=== PATIENT | female | born 1985 | race American Indian/Alaskan Native ===

== ENCOUNTER 2016-10-15 11:19 | Emergency (ER) | payer OTHER ==
[2016-10-15 12:45] LABS: Bacteria,Urine 2+ /HPF (Negative); Bilirubin,Urine NEG (Negative); Blood,Urine LG (Negative); Ketones,Urine NEG (Negative); Leukocyte Esterase,Urine MOD (Negative); Mucus,Urine 1+ /HPF; Nitrite,Urine POS (Negative)
[2016-10-15 13:06] LABS: RBC,Urine > 182.0 /HPF (0.0-6.0); WBC,Urine > 182.0 /HPF (0.0-6.0)
[2016-10-15] MEDS ORDERED: TYLENOL ONE (18:28)
[2016-10-15] MEDS ORDERED: ROCEPHIN/NS 1 GM/50 ML 1 GM/50 ML BAG IV ONE ×2 (18:39→18:40)
[2016-10-15] MEDS ORDERED: NACL 0.9% 1000 ML 1,000 ML ONE (18:39)
[2016-10-15] MEDS ORDERED: NACL 0.9% 1000 ML 1,000 ML IV ONE (18:40)
[2016-10-15] MEDS ORDERED: TYLENOL PO ONE (18:40)
--- NOTE | 2016-10-15 19:04 | Emergency Department Report ---
ED Female HPI - General Chief complaint: Back Pain/Injury Stated complaint: SEVERE PAIN Source: patient Mode of arrival: Ambulatory Limitations: No Limitations - History of Present Illness Initial comments: 31-year-old female past medical history none presents with complaint of 4 days of dysuria with mild lower back pain. Patient states that her urine is darker in color and smells abnormal. Patient states that she has been having body aches. Is awake alert and oriented 3 denies any nausea or vomiting. Denies any vaginal discharge. Complaint of increased urinary frequency. States that she has had UTIs in the past. MD Complaint: dysuria Onset/Timin -: days(s) Location: other Radiation: L flank, R flank Severity: mild Severity scale (0 -10): 5 Quality: aching Consistency: intermittent Associated Symptoms: fever/chills, dysuria - Related Data Sexually active: Yes Previous Rx's Medication Instructions Recorded Last Taken Type Cetirizine HCl [ZyrTEC] 10 mg PO DAILY #30 capsule 04/09/16 Unknown Rx Tinidazole [Tindamax] 2,000 mg PO QDAY #2 tab 04/09/16 Unknown Rx Acetaminophen [Acetaminophen TAB] 500 mg PO Q6HR PRN #25 tablet 10/15/16 Unknown Rx Levofloxacin [Levaquin] 750 mg PO QDAY #5 tablet 10/15/16 Unknown Rx Allergies Allergy/AdvReac Type Severity Reaction Status Date / Time No Known Allergies Allergy Unverified 08/22/13 18:08 ED Review of Systems ROS: Stated complaint: SEVERE PAIN Other details as noted in HPI Constitutional: fever, malaise. denies: chills Eyes: denies: eye pain, eye discharge, vision change ENT: denies: ear pain, throat pain Respiratory: denies: cough, shortness of breath, wheezing Cardiovascular: denies: chest pain, palpitations Endocrine: no symptoms reported Gastrointestinal: denies: abdominal pain, diarrhea Genitourinary: urgency, dysuria. denies: discharge Musculoskeletal: denies: back pain, joint swelling, arthralgia Skin: denies: rash, lesions Neurological: denies: headache, weakness, paresthesias Psychiatric: denies: anxiety, depression Hematological/Lymphatic: denies: easy bleeding, easy bruising ED Past Medical Hx - Past Medical History Previous Medical History?: No Additional medical history: anemia - Surgical History Additional Surgical History: x 2, tubal ligation - Social History Smoking Status: Current Every Day Smoker - Medications Home Medications: Home Medications Medication Instructions Recorded Confirmed Last Taken Type Cetirizine HCl [ZyrTEC] 10 mg PO DAILY #30 capsule 04/09/16 Unknown Rx Tinidazole [Tindamax] 2,000 mg PO QDAY #2 tab 04/09/16 Unknown Rx Acetaminophen [Acetaminophen TAB] 500 mg PO Q6HR PRN #25 tablet 10/15/16 Unknown Rx Levofloxacin [Levaquin] 750 mg PO QDAY #5 tablet 10/15/16 Unknown Rx ED Physical Exam - General Limitations: No Limitations General appearance: alert, in no apparent distress - Head Head exam: Present: atraumatic, normocephalic - Eye Eye exam: Present: normal appearance, PERRL, EOMI - ENT ENT exam: Present: mucous membranes moist - Neck Neck exam: Present: normal inspection - Respiratory Respiratory exam: Present: normal lung sounds bilaterally. Absent: respiratory distress - Cardiovascular Cardiovascular Exam: Present: regular rate, normal rhythm. Absent: systolic murmur, diastolic murmur, rubs, gallop - GI/Abdominal GI/Abdominal exam: Present: soft, tenderness (mild suprapubic tenderness), normal bowel sounds - Extremities Exam Extremities exam: Present: normal inspection, full ROM - Back Exam Back exam: Present: normal inspection, full ROM, CVA tenderness (L) (left-sided flank pain on palpation) - Neurological Exam Neurological exam: Present: alert, oriented X3, CN II-XII intact, normal gait - Psychiatric Psychiatric exam: Present: normal affect, normal mood - Skin Skin exam: Present: warm, dry, intact, normal color. Absent: rash ED Course Vital Signs 10/15/16 10/15/16 10/15/16 11:33 18:47 18:49 Temperature 100.1 F H 102.9 F H Pulse Rate 101 H 112 H Respiratory 16 19 18 Rate Blood Pressure 129/83 Blood Pressure 138/81 [Left] O2 Sat by Pulse 100 100 99 Oximetry 10/15/16 10/15/16 10/15/16 19:29 20:29 21:39 Temperature 99.5 F Pulse Rate 109 H 84 Respiratory 16 16 Rate Blood Pressure Blood Pressure 116/68 112/67 115/71 [Left] O2 Sat by Pulse 100 100 Oximetry 10/15/16 22:09 Temperature Pulse Rate 86 Respiratory 17 Rate Blood Pressure Blood Pressure 120/76 [Left] O2 Sat by Pulse 99 Oximetry ED Medical Decision Making - Lab Data Result diagrams: 10/15/16 19:11 10/15/16 19:11 - Medical Decision Making A/P: Pyelonephritis 1- case discussed with Dr. Prasad 2- patient given 2 L of IV fluid and 1 g of ceftriaxone 3- lactic acid decreased from 2.0 to 0.[address] scan suggestive of bilateral pyelonephritis 4- vital signs stable her discharge, cr 0.7 5- levofloxacin 750 mg 5 day course for pyelonephritis as per [employer] dosing. Tylenol 500 mg when necessary 6-patient tolerating by mouth, I advised her to return to the ED if she experiences any persistent nausea or vomiting increase in fever and chills worsened flank pain or inability to void. Patient states she understood my instructions Critical care attestation.: If time is entered above; I have spent that time in minutes in the direct care of this critically ill patient, excluding procedure time. ED Disposition Clinical Impression: Pyelonephritis Disposition: DISCHARGED TO HOME OR SELFCARE Is pt being admited?: No Does the pt Need Aspirin: No Condition: Stable Instructions: Acute Pyelonephritis (ED), Urinary Tract Infection in Women (ED) Prescriptions: Acetaminophen [Acetaminophen TAB] 500 mg PO Q6HR PRN #25 tablet PRN Reason: Fever Levofloxacin [Levaquin] 750 mg PO QDAY #5 tablet Referrals: TRACI AGGARWAL MD [Staff Physician] - 3-5 Days Forms: Work/School Release Form(ED) Time of Disposition: 22:12
[2016-10-15 19:41] LABS: Basophils % (Auto) 0.3 % (0.0-1.8); Hematocrit 33.9 % (30.3-42.9); Hemoglobin 10.3 gm/dl (10.1-14.3); Mean Corpuscular HGB Conc 30 % (30-34); Platelet Count 248 K/mm3 (140-440); Red Blood Count 5.11 M/mm3 (3.65-5.03); Red Cell Distribution Width 18.7 % (13.2-15.2); White Blood Count 12.1 K/mm3 (4.5-11.0)
[2016-10-15 19:46] LABS: Mean Corpuscular Hemoglobin 20 pg (28-32); Mean Corpuscular Volume 66 fl (79-97)
[2016-10-15 19:51] LABS: Anion Gap 17 mmol/L; Blood Urea Nitrogen 7 mg/dL (7-17); Calcium 8.3 mg/dL (8.4-10.2); Carbon Dioxide 24 mmol/L (22-30); Chloride 96.1 mmol/L (98-107); Creatine Kinase 70 units/L (30-135); Glucose 145 mg/dL (65-100); Potassium 3.5 mmol/L (3.6-5.0); Sodium 134 mmol/L (137-145)
[2016-10-15] MEDS ORDERED: LACTATED RINGERS 1,000 ML IV ONE (20:10)
[2016-10-15] MEDS ORDERED: MORPHINE IV ONE ×2 (20:25→20:30)
--- NOTE | 2016-10-15 20:27 | Cat Scan Report ---
FINAL REPORT EXAM: CT ABDOMEN PELVIS W CON HISTORY: ? left side pyelo, = flank pain and COMPARISON: None available. TECHNIQUE: Contiguous axial images were obtained. Additional sagittal and coronal reformatted images were obtained. Administration of IV contrast given per institution protocol. Images submitted for interpretation. 100 cc Omnipaque 300. FINDINGS: Mild wall thickening and hyperemia of the bilateral ureters. Minimal dilatation renal pelves and ureters. Urinary bladder is unremarkable. No obstructive lesion identified along the course of the ureters. Subtle patchy enhancement of the right kidney. Findings are concerning for bilateral pyelonephritis and ureteritis more pronounced on the right. Lung bases are clear. Liver, spleen, pancreas and adrenal glands are grossly unremarkable. No calcified gallstones or biliary dilatation. Aorta and IVC are normal in caliber. Urinary bladder is grossly unremarkable. Prior coil embolization of fallopian tubes. Otherwise, uterus and ovaries are grossly unremarkable. Trace fluid in the pelvis may be physiologic or reactive. Large and small bowel loops are normal in caliber. Appendix is not visualized. However, there is no pericecal stranding or fluid to suggest acute inflammation. bony pelvis and lumbar spine are grossly intact. IMPRESSION: Findings concerning for bilateral pyelonephritis and ureteritis more pronounced on the right. No other gross acute findings.
[2016-10-15 22:09] VITALS: BP 120/76
[2016-10-15] MEDS ORDERED: LEVAQUIN PO ONE (22:16)
== END 2016-10-15 22:38 | disposition home or self-care (01) ==
LOC: ED 11:19
DX: N12 Tubulo-interstitial nephritis, not specified as acute or chronic (principal); D64.9 Anemia, unspecified; F17.200 Nicotine dependence, unspecified, uncomplicated
CPT/HCPCS: 36415; 74177; 80048; 81001; 81025; 82140; 82550; 85025; 87040; 96361; 96365; 96375; 99284; J0696; J2270; J7030; J7120; Q9967

== ENCOUNTER 2017-08-03 17:55 | Emergency (ER) | payer OTHER ==
[2017-08-03 18:05] VITALS: BP 118/90
--- NOTE | 2017-08-03 21:39 | XRay Report ---
FINAL REPORT PROCEDURE: XR ANKLE 3+V RT TECHNIQUE: Right ankle radiographs, AP, lateral, and oblique views. CPT 78451 HISTORY: amkle pain COMPARISON: No prior studies are available for comparison. FINDINGS: Fracture (s) and/or Dislocation(s): None . Alignment: Normal . Joint space(s): Normal . Soft tissues: Normal . Bone mineralization: Normal . Foreign bodies: None . Calcaneal spurring: Moderate size calcaneal spur seen at the plantar fascia insertion site.. IMPRESSION: Calcaneal spur otherwise negative exam..
--- NOTE | 2017-08-03 21:41 | XRay Report ---
FINAL REPORT PROCEDURE: XR FOOT 3+V RT TECHNIQUE: RIGHT foot radiographs, AP, lateral, and oblique views. CPT 32103 HISTORY: foot pain COMPARISON: No prior studies are available for comparison. FINDINGS: No fracture or dislocation is visualized. There is mild hallux valgus deformity. Joint spaces are well preserved. Bone density appears normal. Moderate size calcaneal spur seen at the plantar fascia insertion site. No radiopaque foreign bodies are identified. IMPRESSION: Calcaneal spur as described. Mild hallux valgus deformity. Otherwise negative exam.
--- NOTE | 2017-08-03 21:57 | Emergency Department Report ---
ED Lower Extremity HPI - General Chief Complaint: Extremity Injury, Lower Stated Complaint: RIGHT FOOT SWOLLEN Time Seen by Provider: 08/03/17 20:03 Source: patient Mode of arrival: Ambulatory Limitations: No Limitations - History of Present Illness Initial Comments: This is a 32-year-old female nontoxic, well nourished in appearance, no acute signs of distress presents to the ED with c/o of right foot pain x1 week. Patient stated she was just seen in a urgent care and was prescribed Prednisone , Bactrim, and Naproxen but patient did not take any naproxen. Patient denies any trauma. Patient stated had normal xrays of the foot. Patient denies any numbness, tignling, fever, chills, headache, nausea, vomiting, chest pain, shortness of breathe, back pain. Patient denies any joint redness or swelling. Patient denies any allergies or PMH. Patient was also referred to orthopedic but patient denies following up. MD Complaint: foot injury -: week(s) (1) Injury: Foot: Right Place: work Severity: mild Severity scale (0 -10): 8 Improves With: immobilization Worsens With: movement, palpation Associated Symptoms: able to partially bear weight, ambulatory. denies: snap/ pop sensation, swelling, numbness, tingling, unable to bear weight - Related Data Previous Rx's Medication Instructions Recorded Last Taken Type Cetirizine HCl [ZyrTEC] 10 mg PO DAILY #30 capsule 04/09/16 Unknown Rx Tinidazole [Tindamax] 2,000 mg PO QDAY #2 tab 04/09/16 Unknown Rx Acetaminophen [Acetaminophen TAB] 500 mg PO Q6HR PRN #25 tablet 10/15/16 Unknown Rx Levofloxacin [Levaquin] 750 mg PO QDAY #5 tablet 10/15/16 Unknown Rx Allergies Allergy/AdvReac Type Severity Reaction Status Date / Time No Known Allergies Allergy Unverified 08/22/13 18:08 ED Review of Systems ROS: Stated complaint: RIGHT FOOT SWOLLEN Other details as noted in HPI Constitutional: denies: chills, fever Eyes: denies: eye pain, eye discharge, vision change ENT: denies: ear pain, throat pain Respiratory: denies: cough, shortness of breath, wheezing Cardiovascular: denies: chest pain, palpitations Endocrine: no symptoms reported Gastrointestinal: denies: abdominal pain, nausea, diarrhea Genitourinary: denies: urgency, dysuria, discharge Musculoskeletal: arthralgia. denies: back pain, joint swelling Skin: denies: rash, lesions Neurological: denies: headache, weakness, paresthesias Psychiatric: denies: anxiety, depression Hematological/Lymphatic: denies: easy bleeding, easy bruising ED Past Medical Hx - Past Medical History Previous Medical History?: Yes Additional medical history: anemia, Right foot - Surgical History Past Surgical History?: Yes Additional Surgical History: x 2, tubal ligation - Social History Smoking Status: Never Smoker Substance Use Type: Alcohol, Prescribed - Medications Home Medications: Home Medications Medication Instructions Recorded Confirmed Last Taken Type Cetirizine HCl [ZyrTEC] 10 mg PO DAILY #30 capsule 04/09/16 Unknown Rx Tinidazole [Tindamax] 2,000 mg PO QDAY #2 tab 04/09/16 Unknown Rx Acetaminophen [Acetaminophen TAB] 500 mg PO Q6HR PRN #25 tablet 10/15/16 Unknown Rx Levofloxacin [Levaquin] 750 mg PO QDAY #5 tablet 10/15/16 Unknown Rx ED Physical Exam - General Limitations: No Limitations General appearance: alert, in no apparent distress - Head Head exam: Present: atraumatic, normocephalic - Eye Eye exam: Present: normal appearance Pupils: Present: normal accommodation - ENT ENT exam: Present: normal exam, mucous membranes moist - Neck Neck exam: Present: normal inspection, full ROM - Respiratory Respiratory exam: Present: normal lung sounds bilaterally. Absent: respiratory distress, wheezes, rales, rhonchi, stridor, chest wall tenderness, accessory muscle use, decreased breath sounds, prolonged expiratory - Cardiovascular Cardiovascular Exam: Present: regular rate, normal rhythm, normal heart sounds. Absent: irregular rhythm, systolic murmur, diastolic murmur, rubs, gallop - GI/Abdominal GI/Abdominal exam: Present: soft, normal bowel sounds - Extremities Exam Extremities exam: Present: normal inspection, full ROM, tenderness, normal capillary refill. Absent: pedal edema, joint swelling, calf tenderness - Expanded Lower Extremity Exam Right Hip exam: Present: normal inspection, full ROM Upper Leg exam: Present: normal inspection, full ROM Knee exam: Present: normal inspection, full ROM Lower Leg exam: Present: normal inspection, full ROM Ankle exam: Present: normal inspection, full ROM. Absent: tenderness, swelling , abrasion, laceration, ecchymosis, deformity, crepidus, dislocation, erythema, anterior draw sign Foot/Toe exam: Present: normal inspection, full ROM, tenderness. Absent: swelling, abrasion, laceration, ecchymosis, deformity, crepidus, dislocation, erythema, amputation, puncture wound, foreign body, calcaneal tenderness, tenderness at base of 5th metatarsal, nail avulsion, subungual hematoma Neuro vascular tendon exam: Present: no vascular compromise. Absent: pulse deficit, abnormal cap refill, motor deficit, sensory deficit, tendon deficit, extremity cold to touch, pallor, abnormal 2-point discrimination, decreased fine /light touch, foot drop, peroneal nerve deficit, significant pain with passive ROM of distal joint Gait: Positive: observed and limited by pain 1 - pain 1 - pain - Back Exam Back exam: Present: normal inspection, full ROM - Neurological Exam Neurological exam: Present: alert, oriented X3, normal gait - Psychiatric Psychiatric exam: Present: normal affect, normal mood - Skin Skin exam: Present: warm, dry, intact, normal color. Absent: rash ED Course Vital Signs 08/03/17 18:00 Temperature 98 F Pulse Rate 94 H Respiratory 20 Rate Blood Pressure 118/90 O2 Sat by Pulse 97 Oximetry - Reevaluation(s) Reevaluation #1: 08/03/17 22:12 Patient is speaking in full sentences with no signs of distress noted. ED Lower Extremity MDM - Medical Decision Making This is a 32-year-old female that presents with right foot strain. Patient is stable and was examined by me. Xray of foot and ankle has been obtained and dictated by the radiologist within normal limits. Patient is notified of the xray results with no questions noted by the patient. Patient was instructed to continue taking all medications as prescribed by previous provider. Patient was also instructed to rice therapy. Patient was referred and instructed to Follow-up with a orthopedic doctor in 3-5 days or if symptoms worsen and continue return to emergency room as soon as possible. At time of discharge, the patient does not seem toxic or ill in appearance. No acute signs of distress noted. Patient agrees to discharge treatment plan of care. No further questions noted by the patient. Critical care attestation.: If time is entered above; I have spent that time in minutes in the direct care of this critically ill patient, excluding procedure time. ED Disposition Clinical Impression: Right foot strain Qualifiers: Encounter type: initial encounter Qualified Code(s): S96.911A - Strain of unspecified muscle and tendon at ankle and foot level, right foot, initial encounter Disposition: TO HOME OR SELFCARE Is pt being admited?: No Does the pt Need Aspirin: No Condition: Stable Instructions: RICE Therapy (ED) Additional Instructions: Follow-up with a orthopedic doctor in 3-5 days or if symptoms worsen and continue return to emergency room as soon as possible. Continue taking all medications as prescribed to you by the pervious provider. Referrals: PRIMARY MD SUMIT [Primary Care Provider] - 3-5 Days CHIKI ERAZO MD [Staff Physician] - 3-5 Days [facility] [Outside] - 3-5 Days [facility] [Outside] - 3-5 Days
== END 2017-08-03 22:34 | disposition home or self-care (01) ==
LOC: ED 17:55
DX: S96.911A Strain of unspecified muscle and tendon at ankle and foot level, right foot, initial encounter (principal); Z98.51 Tubal ligation status; X58.XXXA Exposure to other specified factors, initial encounter; Y93.89 Activity, other specified; Y92.89 Other specified places as the place of occurrence of the external cause; Y99.8 Other external cause status
CPT/HCPCS: 99283

== ENCOUNTER 2017-08-08 01:44 | Emergency (ER) | payer OTHER ==
[2017-08-08] MEDS ORDERED: MOTRIN PO ONE ×2 (06:20→06:28)
--- NOTE | 2017-08-08 07:46 | Emergency Department Report ---
ED Lower Extremity HPI - General Chief Complaint: Extremity Problem,Nontraumatic Stated Complaint: RIGHT LEG PAIN Time Seen by Provider: 08/08/17 07:07 Source: patient Mode of arrival: Ambulatory Limitations: No Limitations - History of Present Illness Initial Comments: This is a 32-year-old female known to me nontoxic, well nourished in appearance , no acute signs of distress presents to the ED with c/o of right foot pain x2 week. Patient was seen by me 5 days ago with received xray of foot and ankle and within normal limits. Patient stated she has been taking Prednisone, Bactrim , and Naproxen that was prescribed to her in an urgent care with minimal to no relief. Patient denies any new trauma. Patient denies any numbness, tignling, fever, chills, headache, nausea, vomiting, chest pain, shortness of breathe, back pain. Patient denies any joint redness or swelling. Patient denies any allergies or PMH. Patient was also referred to orthopedic but patient denies following up. MD Complaint: foot injury -: week(s) (2) Injury: Foot: Right Severity: mild Severity scale (0 -10): 8 Improves With: immobilization Worsens With: movement, palpation Associated Symptoms: ambulatory. denies: snap/pop sensation, swelling, numbness , tingling, unable to bear weight, able to partially bear weight - Related Data Previous Rx's Medication Instructions Recorded Last Taken Type Cetirizine HCl [ZyrTEC] 10 mg PO DAILY #30 capsule 04/09/16 Unknown Rx Tinidazole [Tindamax] 2,000 mg PO QDAY #2 tab 04/09/16 Unknown Rx Acetaminophen [Acetaminophen TAB] 500 mg PO Q6HR PRN #25 tablet 10/15/16 Unknown Rx Levofloxacin [Levaquin] 750 mg PO QDAY #5 tablet 10/15/16 Unknown Rx traMADol [Ultram] 50 mg PO Q6HR PRN #12 tablet 08/08/17 Unknown Rx Allergies Allergy/AdvReac Type Severity Reaction Status Date / Time No Known Allergies Allergy Unverified 08/22/13 18:08 ED Review of Systems ROS: Stated complaint: RIGHT LEG PAIN Other details as noted in HPI Constitutional: denies: chills, fever Eyes: denies: eye pain, eye discharge, vision change ENT: denies: ear pain, throat pain Respiratory: denies: cough, shortness of breath, wheezing Cardiovascular: denies: chest pain, palpitations Endocrine: no symptoms reported Gastrointestinal: denies: abdominal pain, nausea, diarrhea Genitourinary: denies: urgency, dysuria, discharge Musculoskeletal: arthralgia. denies: back pain, joint swelling Skin: denies: rash, lesions Neurological: denies: headache, weakness, paresthesias Psychiatric: denies: anxiety, depression Hematological/Lymphatic: denies: easy bleeding, easy bruising ED Past Medical Hx - Past Medical History Previous Medical History?: No Additional medical history: anemia - Surgical History Past Surgical History?: Yes Additional Surgical History: x 2, tubal ligation - Social History Smoking Status: Never Smoker Substance Use Type: None - Medications Home Medications: Home Medications Medication Instructions Recorded Confirmed Last Taken Type Cetirizine HCl [ZyrTEC] 10 mg PO DAILY #30 capsule 04/09/16 Unknown Rx Tinidazole [Tindamax] 2,000 mg PO QDAY #2 tab 04/09/16 Unknown Rx Acetaminophen [Acetaminophen TAB] 500 mg PO Q6HR PRN #25 tablet 10/15/16 Unknown Rx Levofloxacin [Levaquin] 750 mg PO QDAY #5 tablet 10/15/16 Unknown Rx traMADol [Ultram] 50 mg PO Q6HR PRN #12 tablet 08/08/17 Unknown Rx ED Physical Exam - General Limitations: No Limitations General appearance: alert, in no apparent distress - Head Head exam: Present: atraumatic, normocephalic - Eye Eye exam: Present: normal appearance Pupils: Present: normal accommodation - ENT ENT exam: Present: normal exam, mucous membranes moist - Neck Neck exam: Present: normal inspection, full ROM - Respiratory Respiratory exam: Present: normal lung sounds bilaterally. Absent: respiratory distress, wheezes, rales, rhonchi, stridor - Cardiovascular Cardiovascular Exam: Present: regular rate, normal rhythm, normal heart sounds. Absent: systolic murmur, diastolic murmur, rubs, gallop - GI/Abdominal GI/Abdominal exam: Present: soft, normal bowel sounds - Extremities Exam Extremities exam: Present: normal inspection, full ROM, tenderness, normal capillary refill. Absent: pedal edema, joint swelling, calf tenderness - Expanded Lower Extremity Exam Right Hip exam: Present: normal inspection, full ROM Upper Leg exam: Present: normal inspection, full ROM Knee exam: Present: normal inspection, full ROM Lower Leg exam: Present: normal inspection, full ROM Ankle exam: Present: normal inspection, full ROM. Absent: tenderness, swelling , abrasion, laceration, ecchymosis, deformity, crepidus, dislocation, erythema, anterior draw sign Foot/Toe exam: Present: normal inspection, full ROM, tenderness. Absent: swelling, abrasion, laceration, ecchymosis, deformity, crepidus, dislocation, erythema, amputation, puncture wound, foreign body, calcaneal tenderness, tenderness at base of 5th metatarsal, nail avulsion, subungual hematoma Neuro vascular tendon exam: Present: no vascular compromise. Absent: pulse deficit, abnormal cap refill, motor deficit, sensory deficit, tendon deficit, extremity cold to touch, pallor, abnormal 2-point discrimination, decreased fine /light touch, foot drop, significant pain with passive ROM of distal joint Gait: Positive: observed and normal 1 - pain 1 - pain - Back Exam Back exam: Present: normal inspection, full ROM - Neurological Exam Neurological exam: Present: alert, oriented X3, normal gait - Psychiatric Psychiatric exam: Present: normal affect, normal mood - Skin Skin exam: Present: warm, dry, intact, normal color. Absent: rash ED Course Vital Signs 08/08/17 08/08/17 01:43 01:56 Temperature 98.3 F 98.3 F Pulse Rate 83 73 Respiratory 18 18 Rate Blood Pressure 128/90 128/90 O2 Sat by Pulse 97 98 Oximetry - Reevaluation(s) Reevaluation #1: 08/08/17 07:53 Patient is speaking in full sentences with no signs of distress noted. ED Lower Extremity MDM - Medical Decision Making This is a 32-year-old female that presents with right foot strain. Patient is stable and was examined by me. Patient has previous xray of foot and ankle done 5 days ago and has been obtained and dictated by the radiologist within normal limits. Patient is notified of the xray results with no questions noted by the patient. Patient received Ultram at discharge for pain control and was instructed not to operate any machinery while taking Ultram due to drowsiness. Patient also received a orthopedic shoe for pain comfort. Patient was also instructed to rice therapy. Patient was referred and instructed to Follow-up with a orthopedic doctor in 3-5 days or if symptoms worsen and continue return to emergency room as soon as possible. At time of discharge, the patient does not seem toxic or ill in appearance. No acute signs of distress noted. Patient agrees to discharge treatment plan of care. No further questions noted by the patient. Critical care attestation.: If time is entered above; I have spent that time in minutes in the direct care of this critically ill patient, excluding procedure time. ED Disposition Clinical Impression: Right foot strain Qualifiers: Encounter type: initial encounter Qualified Code(s): S96.911A - Strain of unspecified muscle and tendon at ankle and foot level, right foot, initial encounter Disposition: DC-01 TO HOME OR SELFCARE Is pt being admited?: No Does the pt Need Aspirin: No Condition: Stable Instructions: Arthralgia (ED), Tramadol (By mouth) Additional Instructions: Follow-up with a orthopedic doctor in 3-5 days or if symptoms worsen and continue return to emergency room as soon as possible. Prescriptions: traMADol [Ultram] 50 mg PO Q6HR PRN #12 tablet PRN Reason: Pain Referrals: PRIMARY MD SUMIT [Primary Care Provider] - 3-5 Days CHIKI ERAZO MD [Staff Physician] - 3-5 Days [facility] [Outside] - 3-5 Days Forms: Work/School Release Form(ED)
[2017-08-08 08:10] VITALS: BP 124/81
== END 2017-08-08 08:08 | disposition home or self-care (01) ==
LOC: ED 01:44
DX: S96.911A Strain of unspecified muscle and tendon at ankle and foot level, right foot, initial encounter (principal); Z98.51 Tubal ligation status; X58.XXXA Exposure to other specified factors, initial encounter; Y93.89 Activity, other specified; Y92.89 Other specified places as the place of occurrence of the external cause; Y99.8 Other external cause status
CPT/HCPCS: 99283